=== PATIENT | female | born 1995 | race African-American/Black ===

== ENCOUNTER → 2017-11-17 09:26 | Outpatient (CLI) | payer OTHER, MEDICAID, SELFPAY ==
--- NOTE | 2017-11-17 09:31 | DI.US.S_ITS ---
PROCEDURE: US PELVIC COMPLETE INDICATIONS: PAIN TECHNIQUE: Real-time scanning was performed of the pelvic organs, with image documentation. Additional endovaginal scanning was necessary due to incomplete visualization of the adnexal and endometrial structures by transabdominal scanning. COMPARISON: None. FINDINGS: Transabdominal scanning: Limited scanning through the kidneys shows no hydronephrosis. No pathologic free abdominal or pelvic fluid. Endovaginal scanning: Uterus: Uterus is normal in size at 4.1 x 6.0 x 7.4 cm, anteverted. The endometrium measures 4.3 mm in combined thickness. Ovaries: The right ovary measures 2.0 x 2.4 x 2.9 cm, and contains an involuting ovarian cyst measuring 1.5 x 0.9 x 1.2 cm. The left ovary measures 2.3 x 1.5 x 1.3 cm. IMPRESSION: Involuting small right ovarian cyst, normal appearing uterus and endometrial space. Normal-appearing left ovary. Dictated by: Gato Garber M.D. on 11/17/2017 at 10:17 Approved by: Gato Garber M.D. on 11/17/2017 at 10:18
== END ==
PROVIDERS: PCP Obstetrics & Gynecology; Visit Provider Obstetrics & Gynecology
DX: N83.201 Unspecified ovarian cyst, right side (principal); R10.2 Pelvic and perineal pain
CPT/HCPCS: 76830; 76856